=== PATIENT | female | born 1995 | race Caucasian/White ===

== ENCOUNTER 2021-12-30 03:37 | Inpatient (IN) | payer OTHER ==
[2021-12-30] MEDS ORDERED: Sodium Chloride 0.9% 10 ML Syringe FLUSH PRN (03:45)
[2021-12-30] MEDS ORDERED: Nalbuphine 10 MG/1 ML Vial IVPUSH PRN (03:45)
[2021-12-30] MEDS ORDERED: Oxytocin/Lactated Ringers 10 UNIT/1,000 ML BAG IV SCH ×2 (03:45)
[2021-12-30] MEDS ORDERED: Sodium Chloride 0.9% 10 ML Syringe FLUSH SCH (09:00)
[2021-12-30] MEDS: Lactated Ringers 1,000 ML IV SCH ×2 (10:15→14:34)
[2021-12-30] MEDS: Oxytocin/Lactated Ringers 10 UNIT/1,000 ML BAG IV SCH ×2 (10:15→21:48)
[2021-12-30] MEDS ORDERED: diphenhydrAMINE 50 MG/ML SDV IVPUSH PRN (12:49)
[2021-12-30] MEDS ORDERED: fentaNYL 100 MCG/2 ML SDV EPIDUR PRN (12:49)
[2021-12-30] MEDS ORDERED: ePHEDrine 50 MG/ML SDV IVPUSH PRN (12:49)
[2021-12-30] MEDS: Bupivacaine/fentaNYL/NS 100 ML Bag EPIDUR PRN ×2 (12:59→20:34)
[2021-12-31] MEDS ORDERED: Sodium Chloride 0.9% 10 ML SDV ONE
[2021-12-31] MEDS ORDERED: Bupivacaine 0.25% 10 ML SDV ONE
[2021-12-31] MEDS ORDERED: Lidocaine 1% 10 ML MDV ONE
[2021-12-31] MEDS ORDERED: Acetaminophen 325 MG Tab PO PRN (03:21)
[2021-12-31] MEDS ORDERED: Benzocaine/Menthol 20%-0.5% Spray 78 GM Cannister TOP PRN (03:21)
[2021-12-31] MEDS ORDERED: Witch Hazel Medicated Pads 40/Jar TOP PRN (03:21)
[2021-12-31] MEDS: Ibuprofen 600 MG Tab PO PRN ×3 (07:18→23:12)
[2022-01-01] MEDS: Ibuprofen 600 MG Tab PO PRN (07:53)
== END 2022-01-01 13:30 | disposition home or self-care (01) | DRG 807 ==
LOC: JD.OBCHECK 03:37 → UNDOADMOB 03:45 → JD.OB 03:45 → INTOOBSV 12-31 00:34 → OBSVTOIN 12-31 00:34 → JD.OB 12-31 05:13 → UNDODISIN 01-01 13:30
PROVIDERS: ADMIT Obstetrics & Gynecology; ATTEND Obstetrics & Gynecology
PROC: 10E0XZZ Delivery of Products of Conception, External Approach (ICD-10-PCS; principal; 2021-12-31)
PROC: 3E0R3BZ Introduction of Anesthetic Agent into Spinal Canal, Percutaneous Approach (ICD-10-PCS; 2021-12-31)
DX: O77.0 Labor and delivery complicated by meconium in amniotic fluid (principal); Z37.0 Single live birth; Z3A.40 40 weeks gestation of pregnancy; O48.0 Post-term pregnancy; O66.0 Obstructed labor due to shoulder dystocia
CPT/HCPCS: 01967; 36415; 51702; 59025; 59409; 80306; 81001; 85025; 86592; 86850; 86870; 86900; 86901; 87641; A9270-GY; J2590; J3010; J3490; J7120